=== PATIENT | female | born 1950 | race Two or more races ===

== ENCOUNTER 2018-08-16 09:10 | Outpatient (CLI) | payer MEDICARE, OTHER ==
--- NOTE | 2018-08-16 18:00 | Consultation ---
DATE OF CONSULTATION: 08/16/2018 GASTROENTEROLOGY CONSULTATION CONSULTING PHYSICIAN: Srini Spencer M.D. REFERRING PHYSICIAN: Dr. Willingham. CHIEF COMPLAINT: Referral for abdominal pain, screening colonoscopy, GERD. PAST MEDICAL HISTORY: 1. Diabetes. 2. Hypertension. 3. Osteoporosis. 4. Hyperglycemia. PAST SURGICAL HISTORY: MEDICATIONS: Please see medication reconciliation list. SOCIAL HISTORY: The patient denies any tobacco, alcohol, or IV drug abuse. FAMILY HISTORY: Noncontributory. REVIEW OF SYSTEMS: A 10-point review of systems was performed and pertinent positives in HPI. PHYSICAL EXAMINATION: GENERAL: A well-developed female, in no acute distress. HEENT: Normocephalic and atraumatic. Sclerae anicteric. NECK: Supple. No evidence of lymphadenopathy. CARDIOVASCULAR: Regular rhythm. Plus S1 and S2. No obvious murmur. LUNGS: Clear to auscultation bilaterally. ABDOMEN: Positive bowel sounds. Soft and nontender. No rebound. No guarding. No peritoneal sign. EXTREMITIES: No cyanosis, no clubbing, no edema. ASSESSMENT AND PLAN: This is a 68-year-old female with no prior history of colonoscopy, needs a screening colonoscopy. Also, complaining of chronic GERD. We will plan to do an endoscopy and colonoscopy. The patient was given instruction for both and prep. Scheduled for next Wednesday at 9 a.m. I want to thank Dr. Willingham for this kind referral. Srini Spencer M.D. DR: LAURENT JOB#: [id number] CC: Dr. Willingham
== END 2018-08-16 14:42 | disposition home or self-care (01) ==
LOC: PAN 09:10
DX: R10.9 Unspecified abdominal pain (principal); K21.9 Gastro-esophageal reflux disease without esophagitis; E11.9 Type 2 diabetes mellitus without complications; I10 Essential (primary) hypertension; M81.0 Age-related osteoporosis without current pathological fracture

== ENCOUNTER 2018-09-06 09:15 | Outpatient (CLI) | payer MEDICARE, OTHER ==
[~2018-09-06 09:15] MED LIST: ACTOS15 MG ORAL; ASPIR 8181 MG ORAL; CYCLOBENZAPRINE10 MG ORAL; DICYCLOMINE HCL10 MG ORAL; FOSAMAX70 MG ORAL; GABAPENTIN300 MG ORAL; GLIMEPIRIDE4 MG ORAL; MAGNESIUM OXID400 M1 ORAL; METFORMIN HCL1000 M1 ORAL; SIMVASTATIN20 MG ORAL; jardiance PO
--- NOTE | 2018-09-06 10:00 | General Progress Note ---
Assessment/Plan Problem List: (1) HP gastritis (2) Rectal polyp ICD Codes: K62.1 - Rectal polyp SNOMED: [id number] Assessment/Plan: treat for HP, Bismuth based tx RTC 3 months repeat colon in 5 years Subjective ROS Limited/Unobtainable: Yes Allergies: Coded Allergies: No Known Allergies (Unverified , 08/16/18) Objective General Appearance: alert EENT: normal ENT inspection Neck: supple Cardiovascular: normal rate Respiratory/Chest: lungs clear Abdomen: normal bowel sounds, non tender, soft Extremities: non-tender Srini Spencer MD Sep 06, 2018 10:00
[2018-09-06 13:40] VITALS: BP 154/100
== END 2018-09-06 11:15 | disposition home or self-care (01) ==
LOC: PAN 09:15
DX: K29.70 Gastritis, unspecified, without bleeding (principal); B96.81 Helicobacter pylori [H. pylori] as the cause of diseases classified elsewhere; K62.1 Rectal polyp
CPT/HCPCS: 99212

== ENCOUNTER 2018-12-21 12:06 | Outpatient (CLI) | payer MEDICARE, OTHER ==
--- NOTE | 2018-12-21 13:16 | General Progress Note ---
Assessment/Plan Assessment/Plan: (1) HP gastritis (2) Rectal polyp (3) constipation Assessment/Plan: s/p HP treat ment BT today RTC 3 months Linzess 145 repeat colon in 5 years Subjective ROS Limited/Unobtainable: Yes Allergies: Coded Allergies: No Known Allergies (Unverified , 08/16/18) Objective General Appearance: alert EENT: normal ENT inspection Neck: supple Cardiovascular: normal rate Respiratory/Chest: lungs clear Abdomen: normal bowel sounds, non tender, soft Extremities: non-tender Srini Spencer MD Dec 21, 2018 13:16
[2018-12-21 15:14] VITALS: BP 126/61
== END 2018-12-21 14:06 | disposition home or self-care (01) ==
LOC: PAN 12:06
DX: K29.70 Gastritis, unspecified, without bleeding (principal); K62.1 Rectal polyp; K59.00 Constipation, unspecified
CPT/HCPCS: 83013

== ENCOUNTER 2018-12-28 12:11 | Outpatient (CLI) | payer MEDICARE, OTHER ==
--- NOTE | 2018-12-28 15:05 | General Progress Note ---
Assessment/Plan Assessment/Plan: Assessment/Plan: (1) HP gastritis (2) Rectal polyp (3) constipation Assessment/Plan: BT positive>> will treat for HP Quatro therapy RTC 3 months Linzess 145 repeat colon in 5 years Subjective ROS Limited/Unobtainable: Yes Allergies: Coded Allergies: No Known Allergies (Unverified , 08/16/18) Objective General Appearance: alert EENT: normal ENT inspection Neck: supple Cardiovascular: normal rate Respiratory/Chest: decreased breath sounds Abdomen: normal bowel sounds, non tender, soft Extremities: non-tender Srini Spencer MD Dec 28, 2018 15:05
[2018-12-28 15:38] VITALS: BP 140/80
== END 2018-12-28 14:11 | disposition home or self-care (01) ==
LOC: PAN 12:11
DX: K29.70 Gastritis, unspecified, without bleeding (principal); K62.1 Rectal polyp; K59.00 Constipation, unspecified

== ENCOUNTER 2019-04-03 13:34 | Outpatient (CLI) | payer MEDICARE, OTHER ==
--- NOTE | 2019-04-03 14:03 | General Progress Note ---
Assessment/Plan Assessment/Plan: Assessment/Plan Assessment/Plan: Assessment/Plan: (1) HP gastritis (2) Rectal polyp (3) constipation Assessment/Plan: BT positive>> s/p HP Quatro therapy>>> BT for today RTC 3 months Linzess 145 repeat colon in 5 year Subjective ROS Limited/Unobtainable: Yes Allergies: Coded Allergies: No Known Allergies (Unverified , 08/16/18) Objective General Appearance: alert EENT: normal ENT inspection Neck: supple Cardiovascular: normal rate Respiratory/Chest: decreased breath sounds Abdomen: normal bowel sounds, non tender, soft Extremities: non-tender Srini Spencer MD Apr 03, 2019 14:03
[2019-04-03 15:14] VITALS: BP 147/71
[2019-04-03] MEDS ORDERED: LINZESS145 MCG PO (15:29)
== END 2019-04-03 15:55 | disposition home or self-care (01) ==
LOC: PAN 13:34
DX: K29.70 Gastritis, unspecified, without bleeding (principal); K62.1 Rectal polyp; K59.00 Constipation, unspecified; B96.81 Helicobacter pylori [H. pylori] as the cause of diseases classified elsewhere
CPT/HCPCS: 83013; G0463; 99212